=== PATIENT | male | born 1965 | race Caucasian/White ===

== ENCOUNTER → 2017-06-18 | Outpatient (CLI) | payer OTHER ==
[~2017-06-18] MED LIST: CPR500 PO; LRT5 PO; PRZCUNK
--- NOTE | 2017-06-18 09:42 | DIAGNOSTIC IMAGING REPORT ---
L FOOT MIN 3 VIEWS ROUTINE CLINICAL HISTORY: Left foot pain following crush injury. COMPARISON: None FINDINGS: Alignment of the tarsometatarsal joints is anatomic. There is an acute comminuted minimally displaced fracture through the mid to distal shaft of the left first metatarsal that extends into the metatarsal head. No additional fractures are identified. IMPRESSION: Acute comminuted minimally displaced left first metatarsal fracture. Electronically signed by: Tab Espinal M.D. 06/18/2017 9:40 AM Dictated Date/Time: 06/18/2017 9:38 AM
== END | disposition home or self-care (01) ==
LOC: C.RAD1850 09:28
PROVIDERS: ATTEND Nurse Practitioner Adult Health
DX: S92.312A Displaced fracture of first metatarsal bone, left foot, initial encounter for closed fracture (principal); X58.XXXA Exposure to other specified factors, initial encounter

== ENCOUNTER → 2017-07-02 | Outpatient (CLI) | payer OTHER ==
--- NOTE | 2017-07-02 09:21 | DIAGNOSTIC IMAGING REPORT ---
L FOOT MIN 3 VIEWS CLINICAL HISTORY: CLOSED FRACTURE OF LEFT METATARSAL BONE fracture COMPARISON: 06/18/2017 DISCUSSION: Fracture of the distal first metatarsals again noted. Alignment remains anatomic. Fracture lines are slightly less defined. Alignment remains anatomic. All remaining osseous structures are unremarkable. There is no evidence for soft tissue swelling. IMPRESSION: Partial healing of a comminuted fracture distal first metatarsal. Bony alignment remains anatomic. The above report was generated using voice recognition software. It may contain grammatical, syntax or spelling errors. Electronically signed by: Magan Pineda M.D. 07/02/2017 9:20 AM Dictated Date/Time: 07/02/2017 9:17 AM
== END | disposition home or self-care (01) ==
LOC: C.RDSM 09:05
PROVIDERS: ATTEND Physician Assistant
DX: S92.312D Displaced fracture of first metatarsal bone, left foot, subsequent encounter for fracture with routine healing (principal); X58.XXXD Exposure to other specified factors, subsequent encounter

== ENCOUNTER → 2017-07-04 | Outpatient (CLI) | payer OTHER ==
--- NOTE | 2017-07-04 08:52 | DIAGNOSTIC IMAGING REPORT ---
L FOOT MIN 3 VIEWS CLINICAL HISTORY: LEFT FIRST METATARSAL FRACTURE COMPARISON: 07/02/2017 DISCUSSION: No significant change in the prior study. Unchanged nondisplaced healing fracture distal first metatarsal. All remaining osseous structures are unremarkable. There is no evidence for soft tissue swelling. IMPRESSION: Unchanging anatomically aligned nondisplaced fracture distal first metatarsal. The above report was generated using voice recognition software. It may contain grammatical, syntax or spelling errors. Electronically signed by: Magan Pineda M.D. 07/04/2017 8:51 AM Dictated Date/Time: 07/04/2017 8:49 AM
--- NOTE | 2017-07-04 09:00 | DIAGNOSTIC IMAGING REPORT ---
Study: Right foot HISTORY: [Comparison views. Fracture. FINDINGS: Comparison is made to the contralateral left foot series of the same day. Right foot shows no acute bony abnormality. Cortical margins are intact. No abnormal periosteal reaction. IMPRESSION: Negative right foot Electronically signed by: Magan Pineda M.D. 07/04/2017 8:58 AM Dictated Date/Time: 07/04/2017 8:57 AM
== END | disposition home or self-care (01) ==
LOC: C.RDSM 13:08
PROVIDERS: ATTEND Physician Assistant
DX: S92.315D Nondisplaced fracture of first metatarsal bone, left foot, subsequent encounter for fracture with routine healing (principal); X58.XXXD Exposure to other specified factors, subsequent encounter

== ENCOUNTER → 2017-08-13 | Outpatient (CLI) | payer OTHER ==
--- NOTE | 2017-08-10 10:31 | DIAGNOSTIC IMAGING REPORT ---
LEFT FOOT 3 VIEWS INCLUDING BILATERAL STANDING AP VIEWS CLINICAL HISTORY: NONDISPLACED FX OF LEFT 1ST METATARSAL COMPARISON: 07/04/2017 DISCUSSION: There is an oblique fracture involving the mid to distal first metatarsal. The fracture line is more visible on the current study. Early callus formation is suspected. No additional fractures are visualized. There are no dislocations. IMPRESSION: Healing oblique first metatarsal fracture. Now evident is 1 mm of displacement. Electronically signed by: Brett Diez M.D. 08/10/2017 10:30 AM Dictated Date/Time: 08/10/2017 10:27 AM
== END | disposition home or self-care (01) ==
LOC: C.RDSM 17:09
PROVIDERS: ATTEND Physician Assistant
DX: S92.315A Nondisplaced fracture of first metatarsal bone, left foot, initial encounter for closed fracture (principal); X58.XXXA Exposure to other specified factors, initial encounter

== ENCOUNTER → 2017-12-17 | Outpatient (CLI) | payer OTHER ==
--- NOTE | 2017-12-17 09:10 | DIAGNOSTIC IMAGING REPORT ---
L FOOT MIN 3 VIEWS CLINICAL HISTORY: F/U LEFT FOOT METATARSAL FX fracture COMPARISON: 09/12/2017 DISCUSSION: Progressive healing of a fracture of the first metatarsal. Angulation previously described is unaltered. All remaining osseous structures are unremarkable. IMPRESSION: Progressive healing of a fracture of the first metatarsal with no change in the angulation previously described The above report was generated using voice recognition software. It may contain grammatical, syntax or spelling errors. Electronically signed by: Magan Pineda M.D. 12/17/2017 9:08 AM Dictated Date/Time: 12/17/2017 9:06 AM
== END | disposition home or self-care (01) ==
LOC: C.RDSM 07:52
PROVIDERS: ATTEND Physician Assistant
DX: S92.302A Fracture of unspecified metatarsal bone(s), left foot, initial encounter for closed fracture (principal); X58.XXXA Exposure to other specified factors, initial encounter